=== PATIENT | female | born 1995 | race Caucasian/White ===

== ENCOUNTER 2021-06-20 05:30 | Emergency (ER) | payer BC ==
[2021-06-20] MEDS ORDERED: ACETAMINOPHEN TAB 500 MG TAB PO STA (06:23)
[2021-06-20] MEDS ORDERED: diphenhydrAMINE 50 MG CAP PO STA (06:23)
[2021-06-20 06:31] LABS: Amorphous Sediment,Urine Rare /hpf; Appearance,Urine Cloudy (Clear); Bacteria,Urine Many /hpf; Bilirubin,Urine Negative (Negative); Blood,Urine Negative (Negative); Calcium Oxalate Crystals,Urine Rare /hpf; Color,Urine Yellow; Glucose,Urine (UA) Negative (Negative); Hyaline Casts,Urine 4 /lpf (0-2); Ketones,Urine Negative (Negative); Leukocyte Esterase,Urine Large (Negative); Mucus,Urine Rare /hpf; Nitrite,Urine Negative (Negative); PH, Urine 5.5 (5.0-8.0); Protein,Urine Negative (Negative); RBC,Urine 3 /hpf (0-5); Specific Gravity,Urine 1.022 (1.001-1.035); Squamous Epithelial Cell,Urine 24 /hpf (0-4); Urobilinogen,Urine <2.0 mg/dL (<2.0); WBC,Urine 49 /hpf (0-5)
--- NOTE | 2021-06-20 06:35 | ED ---
Female Urogenital HPI - General Source: patient, RN notes reviewed, old records reviewed Mode of arrival: ambulatory Limitations: no limitations - History of Present Illness MD Complaint: pelvic pain -: hour(s) Location: suprapubic Severity: mild Severity scale (1-10): 2 Quality: cramping Consistency: intermittent Improves with: none Worsens with: none Patient : Yes Associated Symptoms: denies other symptoms <Aayush Tomlinson - Last Filed: 06/20/21 06:33> <Ewa Argueta - Last Filed: 06/20/21 07:51> - General Chief complaint: Abdominal Pain Stated complaint: ABD Pain, 16 wks preg Time Seen by Provider: 06/20/21 05:38 - History of Present Illness Initial comments: This is a 26-year-old female presenting from work today for evaluation of some abdominal pain and cramping. No bleeding. Patient is about 16 weeks she have ultrasound at about [address] with [address] Murrell. Patient states crapping started today she is unsure she did take Tylenol and was little bit worse at work, she presents after hitting her work shift for evaluation of abdominal pain and . She has no nausea vomiting diarrhea, no fevers. (Aayush Tomlinson) - Related Data Home Medications Medication Instructions Recorded Confirmed Folic Acid 1 mg PO DAILY 05/06/14 06/20/21 Mys-Dcyp-Qddya Acid 1 cap PO DAILY 06/20/21 06/20/21 [-U Capsule (formulary)] lamoTRIgine [LaMICtal] 200 mg PO BID 06/20/21 06/20/21 Previous Rx's Medication Instructions Recorded Cephalexin [Keflex] 500 mg PO Q6HR 7 Days #28 cap 06/20/21 Allergies Allergy/AdvReac Type Severity Reaction Status Date / Time No Known Allergies Allergy Verified 06/20/21 07:28 Review of Systems ROS Other: All systems not noted in ROS Statement are negative. <Aayush Tomlinson - Last Filed: 06/20/21 06:33> ROS Other: All systems not noted in ROS Statement are negative. <Ewa Argueta - Last Filed: 06/20/21 07:51> ROS Statement: Those systems with pertinent positive or pertinent negative responses have been documented in the HPI. Past Medical History Past Medical History: Seizure Disorder Additional Past Medical History / Comment(s): adhd mentally challenged History of Any Multi-Drug Resistant Organisms: None Reported Past Surgical History: No Surgical Hx Reported Past Psychological History: ADD/ADHD, Anxiety, Depression Smoking Status: Never smoker Past Alcohol Use History: None Reported Past Drug Use History: Marijuana <Aayush Tomlinson - Last Filed: 06/20/21 06:33> General Exam Limitations: no limitations General appearance: alert, in no apparent distress Head exam: Present: atraumatic, normocephalic, normal inspection Eye exam: Present: normal appearance, PERRL, EOMI. Absent: scleral icterus, conjunctival injection, periorbital swelling ENT exam: Present: normal exam, mucous membranes moist Neck exam: Present: normal inspection. Absent: tenderness, meningismus, lymphadenopathy Respiratory exam: Present: normal lung sounds bilaterally. Absent: respiratory distress, wheezes, rales, rhonchi, stridor Cardiovascular Exam: Present: regular rate, normal rhythm, normal heart sounds. Absent: systolic murmur, diastolic murmur, rubs, gallop, clicks GI/Abdominal exam: Present: soft, normal bowel sounds. Absent: distended, tenderness, guarding, rebound, rigid Extremities exam: Present: normal inspection, full ROM, normal capillary refill. Absent: tenderness, pedal edema, joint swelling, calf tenderness Back exam: Present: normal inspection Neurological exam: Present: alert, oriented X3, CN II-XII intact Psychiatric exam: Present: normal affect, normal mood Skin exam: Present: warm, dry, intact, normal color. Absent: rash <Aayush Tomlinson - Last Filed: 06/20/21 06:33> Course <Aayush Tomlinson - Last Filed: 06/20/21 06:33> Vital Signs 06/20/21 06/20/21 05:33 06:35 Temperature 98.2 F 97.6 F Pulse Rate 77 83 Respiratory 24 16 Rate Blood Pressure 111/71 121/77 O2 Sat by Pulse 100 100 Oximetry - Reevaluation(s) Reevaluation #1: 06/20/21 06:34 Medical record is reviewed (Aayush Tomlinson) Reevaluation #2: 06/20/21 06:34 Patient will receive ultrasound this morning (Aayush Tomlinson) Medical Decision Making <Ewa Argueta - Last Filed: 06/20/21 07:51> - Medical Decision Making Patient is a 26-year-old female presenting for abdominal cramping started today. She is approximately 16 weeks , [facility] [employer] [employer]ILI[facility] is Dr. Michael. No vaginal bleeding. Urine is suggestive of UTI, urine culture is pending. Ultrasound shows a viable IUP at approximately 16 weeks, no alarming findings. I discussed these findings with the patient. Patient be started on Keflex for her UTI. She does have a follow-up appointment with her [facility] A[facility]ILI[facility] next week. Return parameters were discussed with her and she verbalized understanding. Case discussed with Dr. Tomlinson. (Ewa Argueta) - Lab Data Lab Results 06/20/21 Range/Units 06:14 Urine Color Yellow Urine Appearance Cloudy H (Clear) Urine pH 5.5 (5.0-8.0) Ur Specific [place] 1.022 (1.001-1.035) Urine Protein Negative (Negative) Urine Glucose (UA) Negative (Negative) Urine Ketones Negative (Negative) Urine Blood Negative (Negative) Urine Nitrite Negative (Negative) Urine Bilirubin Negative (Negative) Urine Urobilinogen <2.0 (<2.0) mg/dL Ur Leukocyte Esterase Large H (Negative) Urine RBC 3 (0-5) /hpf Urine WBC 49 H (0-5) /hpf Ur Squamous Epith Cells 24 H (0-4) /hpf Calcium Oxalate Crystal Rare H (None) /hpf Amorphous Sediment Rare H (None) /hpf Urine Bacteria Many H (None) /hpf Hyaline Casts 4 H (0-2) /lpf Urine Mucus Rare H (None) /hpf Disposition <Aayush Tomlinson - Last Filed: 06/20/21 06:33> Is patient prescribed a controlled substance at d/c from ED?: No Time of Disposition: 07:50 <Ewa Argueta - Last Filed: 06/20/21 07:51> Clinical Impression: UTI (urinary tract infection) during , Abdominal cramping Disposition: HOME SELF-CARE Condition: Stable Instructions (If sedation given, give patient instructions): Urinary Tract Infection in (ED) Additional Instructions: Please return to the Emergency Department if symptoms worsen or any other concerns. Please take antibiotics as prescribed, finish entire course. Follow-up with your [facility]. Prescriptions: Cephalexin [Keflex] 500 mg PO Q6HR 7 Days #28 cap Referrals: Aaron Talbot MD [Primary Care Provider] - 1-2 days Chrissy Michael MD [STAFF PHYSICIAN] - 1-2 days
--- NOTE | 2021-06-20 07:42 | US ---
EXAMINATION TYPE: US OB >= 14 wk fetus DATE OF EXAM: 06/20/2021 COMPARISON: None CLINICAL HISTORY: ob Pt states lateral ABD pain TECHNIQUE: Transabdominal (TA) GESTATIONAL AGE / DATING Physician Established: (16 weeks/2 days) EDC: 12/03/2021 Dates by LMP: (16 weeks/2 days) EDC: 12/03/2021 Dates by First Scan: No previous this is first scan Dates by Current Scan: (16 weeks/3 days) EDC: 12/02/2021 SURVEY IUP: Single PLACENTA: Anterior PREVIA: No Previa SCHUYLER: 13.3 cm Normal CERVICAL LENGTH (transabdominal: norm > 3.0cm): 4.0 cm BIOMETRY PRESENTATION: Vertex BPD: 3.4 cm 16 weeks / 5 days HC: 12.9 cm 16 weeks / 4 days AC: 9.9 cm 16 weeks / 0 days FL: 2.1 cm 16 weeks / 2 days ESTIMATED WEIGHT IN GRAMS: 146 grams ESTIMATED WEIGHT IN LBS/OZ: 0 lbs. 5 oz. WEIGHT PERCENTAGE BASED ON ESTABLISHED DATES: 32% HC/AC: 1.30 Normal FL/AC: 21 Normal HEART RATE: 155 bpm RHYTHM: Normal Single, viable IUP/ No abnormality visualized at this time to account for pt's symptoms This is not an anatomic survey IMPRESSION: Single live intrauterine measuring approximately 16 weeks and 3 days gestation by sonograph ic criteria.
[2021-06-20 08:11] VITALS: BP 125/70; PULSE 87; RESP 18; TEMP 97.2
== END 2021-06-20 08:11 | disposition home or self-care (01) ==
LOC: EC 05:30
DX: O23.42 Unspecified infection of urinary tract in pregnancy, second trimester (principal); O99.352 Diseases of the nervous system complicating pregnancy, second trimester; G40.909 Epilepsy, unspecified, not intractable, without status epilepticus; O99.342 Other mental disorders complicating pregnancy, second trimester; F41.9 Anxiety disorder, unspecified; F32.9 Major depressive disorder, single episode, unspecified; F90.9 Attention-deficit hyperactivity disorder, unspecified type; O99.322 Drug use complicating pregnancy, second trimester; F12.90 Cannabis use, unspecified, uncomplicated; Z3A.16 16 weeks gestation of pregnancy; Z79.899 Other long term (current) drug therapy
CPT/HCPCS: 76805; 81001; 87086; 99284

== ENCOUNTER 2021-07-14 14:00 | Outpatient (CLI) | payer BC ==
[2021-07-14 14:32] VITALS: BP 125/68; PULSE 74; RESP 16; TEMP 97.3
--- NOTE | 2021-07-31 09:35 | P.MSEPDOC ---
Presenting Problems - Arrival Data Date of Arrival on Unit: 07/14/21 Time of Arrival on Unit: 13:58 Mode of Transport: Ambulatory - Complaint OB-Reason for Admission/Chief Complaint: Decreased Movement Comment: pt GA 19 5/7, doppler fhr 148bpm Medical History - Information : 1 Para: 0 Number of Living Children: 0 - Gestational Age Gestational Age by CARIE (wks/days): 19 Weeks and 5 Days Review of Systems - Review of Systems Constitutional: No problems Breast: No problems ENT: No problems Cardiovascular: No problems Respiratory: No problems Gastrointestinal: No problems Genitourinary: No problems Musculoskeletal: No problems Neurological: No problems Skin: No problems Vital Signs - Temperature Temperature: 97.3 F Temperature Source: Temporal Artery Scan - Pulse Right Sitting Brachial Pulse Rate: 74 Pulse Assessment Method: Automatic Cuff - Respirations Respiratory Rate: 16 Oxygen Delivery Method: Room Air O2 Sat by Pulse Oximetry: 98 - Blood Pressure Right Arm Sitting Blood Pressure: 125/68 Blood Pressure Mean: 87 Blood Pressure Source: Automatic Cuff Physician Notification - Physician Notified Physician Notified Date: 07/14/21 Physician Notified Time: 14:18 Physician: Wyatt Zhong Order Received: Yes (discharge home) Maternal Triage Index - Maternal Triage Index Presenting for scheduled procedure w/no complaint: No - Stat/Priority 1 Stat Priority 1: No - Urgent/Priority 2 Urgent Priority 2: No - Prompt/Priority 3 Prompt Priority 3: No - Non-Urgent/Priority 4 Non-Urgent Priority 4: Yes Criteria Met for Priority 4: decrease movement, non viable gestation Disposition - Disposition OB Disposition: Discharge to home Discharge Date: 07/14/21 Discharge Time: 14:23 I agree with the RN Medical Screening Exam: Yes Case reviewed; plan agreed upon as documented in EMR&OBIX.: Yes Comments: This patient was discussed with Dr. hZong, my partner. This patient was neither seen nor examined by either one of us. Diagnosis: DECREASED MOVEMENTS, SECOND TRIMESTER, FETUS 1
== END 2021-07-14 14:23 | disposition home or self-care (01) ==
LOC: FBPOP 14:00
PROVIDERS: ATTEND Obstetrics & Gynecology
DX: O36.8121 Decreased fetal movements, second trimester, fetus 1 (principal); Z3A.19 19 weeks gestation of pregnancy
CPT/HCPCS: 99213

== ENCOUNTER 2021-08-29 11:40 | Outpatient (CLI) | payer BC ==
[2021-08-29 12:52] LABS: Appearance,Urine Cloudy (Clear); Bacteria,Urine Rare /hpf; Bilirubin,Urine Negative (Negative); Blood,Urine Negative (Negative); Color,Urine Yellow; Glucose,Urine (UA) Negative (Negative); Ketones,Urine Negative (Negative); Leukocyte Esterase,Urine Large (Negative); Mucus,Urine Rare /hpf; Nitrite,Urine Negative (Negative); PH, Urine 6.5 (5.0-8.0); Protein,Urine Trace (Negative); RBC,Urine 48 /hpf (0-5); Specific Gravity,Urine 1.021 (1.001-1.035); Squamous Epithelial Cell,Urine 9 /hpf (0-4); Urobilinogen,Urine <2.0 mg/dL (<2.0); WBC,Urine 58 /hpf (0-5)
[2021-08-29 13:51] VITALS: BP 113/66; PULSE 81; RESP 17; TEMP 97.4
--- NOTE | 2021-09-13 07:43 | P.MSEPDOC ---
Presenting Problems - Arrival Data Date of Arrival on Unit: 08/29/21 Time of Arrival on Unit: 11:40 Mode of Transport: Wheelchair - Complaint OB-Reason for Admission/Chief Complaint: Pain Comment: pt presents to triage for 1 episode of vomiting and dizziness at 0830 and constant back pain and some cramping Medical History - Information : 1 Para: 0 Term: 0 : 0 Abortions: Spontaneous or Elective: 0 Number of Living Children: 0 - Gestational Age Gestational Age by CARIE (wks/days): 26 Weeks and 2 Days - History Complications: Other Comment: pt smokes marijuana daily Review of Systems - Review of Systems Constitutional: No problems Breast: No problems ENT: No problems Cardiovascular: No problems Respiratory: No problems Gastrointestinal: No problems Genitourinary: No problems Musculoskeletal: No problems Neurological: No problems Skin: No problems Vital Signs - Temperature Temperature: 97.4 F Temperature Source: Temporal Artery Scan - Pulse Right Brachial Pulse Rate: 81 Pulse Assessment Method: Automatic Cuff - Respirations Respiratory Rate: 17 O2 Sat by Pulse Oximetry: 99 - Blood Pressure Right Arm Blood Pressure: 113/66 Blood Pressure Mean: 81 Blood Pressure Source: Automatic Cuff Medical Screen Scoring - Cervical Exam Dilation (cm): 0 Station: -5 Membranes: Intact - Uterine Contractions Frequency From (mins): 0 - Assessment - Baby A Heart Rate - NICHD Category: Category I (Normal) Physician Notification - Physician Notified Physician Notified Date: 08/29/21 Physician Notified Time: 13:10 Physician: Chrissy Michael Order Received: Yes - Notification Comment Comment: ua results reported, urine culture ordered, pt to increase oral fluids, on pelvic rest until next scheduled appt on sep 14, script for keflex called into [facility] for patient Maternal Triage Index - Maternal Triage Index Presenting for scheduled procedure w/no complaint: No - Stat/Priority 1 Stat Priority 1: No - Urgent/Priority 2 Urgent Priority 2: No - Prompt/Priority 3 Prompt Priority 3: No - Non-Urgent/Priority 4 Non-Urgent Priority 4: Yes Criteria Met for Priority 4: pt 26/27 weeks GA, presents with constant lower back pain and some cramping and one epidisode of n/v this am Disposition - Disposition OB Disposition: Triage, Discharge to home, Written follow up instructions reviewed Discharge Date: 08/29/21 Discharge Time: 13:30 I agree with the RN Medical Screening Exam: Yes Case reviewed; plan agreed upon as documented in EMR&OBIX.: Yes Comments: Patient was neither seen nor examined by me Diagnosis: TULAREMIA NOS
== END 2021-08-29 13:30 | disposition home or self-care (01) ==
LOC: FBPOP 11:40
PROVIDERS: ATTEND Obstetrics & Gynecology
DX: O98.812 Other maternal infectious and parasitic diseases complicating pregnancy, second trimester (principal); O99.322 Drug use complicating pregnancy, second trimester; A21.9 Tularemia, unspecified; F12.90 Cannabis use, unspecified, uncomplicated; Z3A.26 26 weeks gestation of pregnancy
CPT/HCPCS: 81001; 87086; 99213

== ENCOUNTER 2021-09-15 13:15 | Outpatient (CLI) | payer BC ==
[2021-09-15 15:14] LABS: Appearance,Urine Cloudy (Clear); Bacteria,Urine Rare /hpf; Bilirubin,Urine Negative (Negative); Blood,Urine Negative (Negative); Calcium Oxalate Crystals,Urine Occasional /hpf; Color,Urine Yellow; Glucose,Urine (UA) Negative (Negative); Ketones,Urine 1+ (Negative); Leukocyte Esterase,Urine Large (Negative); Mucus,Urine Rare /hpf; Nitrite,Urine Negative (Negative); PH, Urine 6.5 (5.0-8.0); Protein,Urine Trace (Negative); RBC,Urine 12 /hpf (0-5); Specific Gravity,Urine 1.023 (1.001-1.035); Squamous Epithelial Cell,Urine 1 /hpf (0-4); Urobilinogen,Urine <2.0 mg/dL (<2.0); WBC,Urine 46 /hpf (0-5)
[2021-09-15 16:32] VITALS: BP 118/65; PULSE 84; RESP 18; TEMP 97.4
--- NOTE | 2021-09-16 11:34 | P.MSEPDOC ---
Presenting Problems - Arrival Data Date of Arrival on Unit: 09/15/21 Time of Arrival on Unit: 13:16 Mode of Transport: Ambulatory - Complaint OB-Reason for Admission/Chief Complaint: Other Comment: abd pain,back and vaginal regions that began this am.spotting pink a few hours ago Medical History - Information : 1 Para: 0 Term: 0 : 0 Abortions: Spontaneous or Elective: 0 Number of Living Children: 0 - Gestational Age Gestational Age by CARIE (wks/days): 28 Weeks and 5 Days Review of Systems - Review of Systems Constitutional: No problems Breast: No problems ENT: No problems Cardiovascular: No problems Respiratory: No problems Gastrointestinal: No problems Genitourinary: No problems Musculoskeletal: No problems Neurological: No problems Skin: No problems Vital Signs - Temperature Temperature: 97.4 F Temperature Source: Temporal Artery Scan - Pulse Right Radial Pulse Rate: 84 Pulse Assessment Method: Automatic Cuff - Respirations Respiratory Rate: 18 Oxygen Delivery Method: Room Air - Blood Pressure Right Arm Blood Pressure: 118/65 Blood Pressure Mean: 82 Blood Pressure Source: Automatic Cuff Medical Screen Scoring - Assessment - Baby A Baseline FHR: 140 Heart Rate - NICHD Category: Category I (Normal) NST: Reactive Physician Notification - Physician Notified Physician Notified Date: 09/15/21 Physician Notified Time: 16:00 Physician: Wyatt Zhong Order Received: Yes - Notification Comment Comment: bactrim bid x 5 days. home with instructions. lots of water. call office on saturday for culture results Maternal Triage Index - Non-Urgent/Priority 4 Non-Urgent Priority 4: Yes Criteria Met for Priority 4: abnormal urine.rx meds given for uti. ffn= neg. cervical exam closed thick high. Disposition - Disposition OB Disposition: Discharge to home, Written follow up instructions reviewed Discharge Date: 09/15/21 Discharge Time: 16:05 I agree with the RN Medical Screening Exam: Yes Physician's MSE Comment: I have neither seen nor examined the patient. Case reviewed; plan agreed upon as documented in EMR&OBIX.: Yes Diagnosis: RELATED CONDITIONS, UNSPECIFIED, THIRD TRIMESTER
== END 2021-09-15 16:05 | disposition home or self-care (01) ==
LOC: FBPOP 13:15
PROVIDERS: ATTEND Obstetrics & Gynecology
DX: O26.893 Other specified pregnancy related conditions, third trimester (principal); R10.9 Unspecified abdominal pain; M54.9 Dorsalgia, unspecified; Z3A.28 28 weeks gestation of pregnancy
CPT/HCPCS: 59025; 81001; 82731; 87086; 99213

== ENCOUNTER 2021-09-18 14:30 | Outpatient (CLI) | payer BC ==
[2021-09-18 15:59] VITALS: BP 134/85; PULSE 89; RESP 16; TEMP 97.2
--- NOTE | 2021-10-25 04:50 | P.MSEPDOC ---
Presenting Problems - Arrival Data Date of Arrival on Unit: 09/18/21 Time of Arrival on Unit: 14:30 Mode of Transport: Ambulatory - Complaint OB-Reason for Admission/Chief Complaint: Acute Nausea/Vomiting Comment: Nausea vomiting since last night, complains of vomiting x5 today. Dr. Michael office aware and sent patient to triage. Medical History - Gestational Age Gestational Age by CARIE (wks/days): 29 Weeks and 1 Days Review of Systems - Review of Systems Constitutional: No problems Breast: No problems ENT: No problems Cardiovascular: No problems Respiratory: No problems Gastrointestinal: No problems Genitourinary: No problems Musculoskeletal: No problems Neurological: No problems Skin: No problems Vital Signs - Temperature Temperature: 97.2 F Temperature Source: Oral - Pulse Pulse Oximetery Pulse Rate: 89 Pulse Assessment Method: Pulse Oximetry - Respirations Respiratory Rate: 16 Oxygen Delivery Method: Room Air O2 Sat by Pulse Oximetry: 97 - Blood Pressure Right Arm Blood Pressure: 134/85 Blood Pressure Mean: 101 Blood Pressure Source: Automatic Cuff Medical Screen Scoring - Assessment - Baby A Heart Rate - NICHD Category: Category I (Normal) Physician Notification - Physician Notified Physician Notified Date: 09/18/21 Physician Notified Time: 15:30 Physician: Dr. Michael New Order Received: Yes - Notification Comment Comment: Dr. Michael notified of patients complaints of nausea and vomiting, p atient instructed to hydrate orally and follow up in one week at Dr. Hargrove office. FHR catagory I Dr. Michael aware. Maternal Triage Index - Maternal Triage Index Presenting for scheduled procedure w/no complaint: No - Stat/Priority 1 Stat Priority 1: No - Urgent/Priority 2 Urgent Priority 2: No - Prompt/Priority 3 Prompt Priority 3: No - Non-Urgent/Priority 4 Non-Urgent Priority 4: Yes Criteria Met for Priority 4: Patient complaints of nausea vomiting x5 today. Gestatial age 29weeks and 1 day Disposition - Disposition OB Disposition: Physician follow up in office, Triage, Discharge to home, Written follow up instructions reviewed Discharge Date: 09/18/21 Discharge Time: 15:45 I agree with the RN Medical Screening Exam: Yes Case reviewed; plan agreed upon as documented in EMR&OBIX.: Yes Comments: Patient with me this pain not examined by me Diagnosis: PULMONARY TULAREMIA
== END 2021-09-18 15:45 | disposition home or self-care (01) ==
LOC: FBPOP 14:30
PROVIDERS: ATTEND Obstetrics & Gynecology
DX: O98.813 Other maternal infectious and parasitic diseases complicating pregnancy, third trimester (principal); A21 Tularemia; Z3A.29 29 weeks gestation of pregnancy
CPT/HCPCS: 59025; 84112; 99213

== ENCOUNTER 2021-09-19 13:05 | Outpatient (CLI) | payer BC ==
[2021-09-19 14:55] VITALS: BP 128/75; PULSE 98; RESP 16; TEMP 97.6
--- NOTE | 2021-10-25 04:49 | P.MSEPDOC ---
Presenting Problems - Arrival Data Date of Arrival on Unit: 09/19/21 Time of Arrival on Unit: 13:05 Mode of Transport: Ambulatory - Complaint OB-Reason for Admission/Chief Complaint: Other Comment: Patient arrived at triage with cramping, vaginal discharge and mild vaginal pain. Dr. Michael spoke with patient on the phone and had patient come to triage. Medical History - Information : 1 Para: 0 Term: 0 : 0 Abortions: Spontaneous or Elective: 0 Number of Living Children: 0 - Gestational Age Gestational Age by CARIE (wks/days): 29 Weeks and 2 Days Review of Systems - Review of Systems Constitutional: No problems Breast: No problems ENT: No problems Cardiovascular: No problems Respiratory: No problems Gastrointestinal: No problems Genitourinary: No problems Musculoskeletal: No problems Neurological: No problems Skin: No problems Vital Signs - Temperature Temperature: 97.6 F Temperature Source: Oral - Pulse Pulse Oximetery Pulse Rate: 98 Pulse Assessment Method: Pulse Oximetry - Respirations Respiratory Rate: 16 O2 Sat by Pulse Oximetry: 98 - Blood Pressure Right Arm Blood Pressure: 128/75 Blood Pressure Mean: 92 Blood Pressure Source: Automatic Cuff Medical Screen Scoring - Cervical Exam Dilation (cm): 0 Effacement (%): 0 Membranes: Intact - Uterine Contractions Frequency From (mins): 0 - Assessment - Baby A Baseline FHR: 135 Heart Rate - NICHD Category: Category I (Normal) NST: Reactive Physician Notification - Physician Notified Physician Notified Date: 09/19/21 Physician Notified Time: 14:00 Physician: Dr. Michael New Order Received: Yes (Patient to follow up in office this week.) Maternal Triage Index - Non-Urgent/Priority 4 Non-Urgent Priority 4: Yes Criteria Met for Priority 4: Patient arrived to triage with cramping, vaginal discharge with mild pain that is white and yellow. Disposition - Disposition OB Disposition: Discharge to home Discharge Date: 09/19/21 Discharge Time: 14:30 I agree with the RN Medical Screening Exam: Yes Case reviewed; plan agreed upon as documented in EMR&OBIX.: Yes Comments: Patient was neither see nor examined by me Diagnosis: 047.03
== END 2021-09-19 14:30 | disposition home or self-care (01) ==
LOC: FBPOP 13:05
PROVIDERS: ATTEND Obstetrics & Gynecology
DX: O47.03 False labor before 37 completed weeks of gestation, third trimester (principal); Z3A.29 29 weeks gestation of pregnancy
CPT/HCPCS: 59025; 99213

== ENCOUNTER 2021-10-31 16:38 | Inpatient (IN) | payer BC ==
[2021-10-31] MEDS ORDERED: LIDOCAINE 0.5% (PF) 5 MG/ML (50 ML SDV) SQ PRN (18:22)
[2021-10-31] MEDS ORDERED: METHYLERGONOVINE 0.2 MG/ML 1 ML AMP IM PRN (18:22)
[2021-10-31] MEDS ORDERED: OXYTOCIN 10 UNIT/ML 1 ML VIAL IM PRN (18:22)
[2021-10-31] MEDS ORDERED: CARBOPROST TROMETHAMINE 250 MCG/ML 1 ML AMP IM PRN (18:22)
[2021-10-31] MEDS ORDERED: TERBUTALINE 1 MG/ML VIAL SQ PRN (18:22)
[2021-10-31] MEDS ORDERED: AMPICILLIN 2,000 MG in SODIUM CHLORIDE 0.9% 100 ML IVPB STA (18:25)
[2021-10-31] MEDS ORDERED: OXYTOCIN 30 UNITS/500 ML NS 30 UNIT in SALINE 1 500ML.BAG IV SCH (18:30)
[2021-10-31 18:59] LABS: Basophils % (A) 0 %; Eosinophils # (A) 0.1 k/uL (0-0.7); Eosinophils % (A) 1 %; HCT 33.4 % (34.0-46.0); HGB 11.8 gm/dL (11.4-16.0); Lymphocytes % (A) 21 %; MCH 31.4 pg (25.0-35.0); MCHC 35.3 g/dL (31.0-37.0); MCV 89.1 fL (80.0-100.0); Mean Platelet Volume 7.5; Monocytes # (A) 0.4 k/uL (0-1.0); Monocytes % (A) 5 %; Neutrophils # (A) 6.5 k/uL (1.3-7.7); Neutrophils % (A) 71 %; Platelet Count 281 k/uL (150-450); RBC 3.75 m/uL (3.80-5.40); RDW 12.2 % (11.5-15.5); WBC 9.1 k/uL (3.8-10.6)
[2021-10-31] MEDS: LACTATED RINGERS 1,000 ML IV SCH (19:00)
[2021-10-31] MEDS: lamoTRIgine 100 MG TAB PO SCH (20:06)
[2021-10-31] MEDS: AMPICILLIN 1,000 MG in SODIUM CHLORIDE 0.9% 50 ML IVPB SCH (23:19)
[2021-11-01] MEDS: LACTATED RINGERS 1,000 ML IV SCH ×2 (02:46→13:32)
[2021-11-01] MEDS: AMPICILLIN 1,000 MG in SODIUM CHLORIDE 0.9% 50 ML IVPB SCH ×4 (02:55→15:31)
[2021-11-01] MEDS: BUTORPHANOL 1 MG/ML 1 ML VIAL IV PRN ×2 (04:53→07:52)
[2021-11-01] MEDS: lamoTRIgine 100 MG TAB PO SCH ×2 (09:49→20:07)
[2021-11-01] MEDS ORDERED: ROPIVACAINE 5MG/ML 20ML VIAL ONE (09:51)
[2021-11-01] MEDS ORDERED: SODIUM CHLORIDE 0.9% 100 ML BAG ONE (09:51)
[2021-11-01] MEDS ORDERED: fentaNYL (PF) 50 MCG/ML 5 ML AMP ONE (09:51)
[2021-11-01] MEDS ORDERED: ROPIVACAINE 100 MG, fentaNYL (PF). 200 MCG in SODIUM CHLORIDE 0.9% 76 ML EPIDURAL ONE (11:00)
--- NOTE | 2021-11-01 14:30 | P.HPOB ---
History of Present Illness H&P Date: 11/01/21 Chief Complaint: My water broke at 6:30 AM on Saturday morning This is a 26-year-old female 1 para 0 EDC 1-22 at 35-3/7 weeks' gestation who presented with spontaneous amniorrhexis at home. She presented to labor and delivery last night at approximate 6:30 PM. She was admitted, spontaneous amniorrhexis was confirmed by amnio sure testing. Clear fluid continued to leak. Ampicillin was started for known history of positive group B strep. Past medical history is significant for seizures, stable on Lamictal twice daily. Surgical history is negative. Social history patient is single, she admits to leaking and marijuana use. She lives locally in [place]. She is currently employed. Obstetric history blood type is A+, rubella status immune. VDRL testing, urine culture, hepatitis B surface antigen, HIV testing, gonorrhea and chlamydia cultures all negative. Urine drug screen positive 2 for cannabinoids. One- hour Glucola 123, positive group B strep noted in the urine for culture. Current medications Lamictal 200mg twice daily, vitamin daily. ALLERGIES none known. On exam patient is 5 foot 0 inches, 154 pounds, initial blood pressure on admission 147/92 with a pulse of 98. General physical exam is within normal limits. heart rate is consistent with reactive NST. Cervix is 1 cm dilated, long, -3, vertex, posterior with clear fluid leaking. Extremities reveal no edema. Impression: 35-3/7 weeks intrauterine , premature rupture of membranes. Positive group B strep culture noted. Positive history of marijuana here Plan: Ampicillin prophylaxis was started by the doctor rehabilitation clerk. Low-dose Pitocin through the night. Close maternal and surveillance. Anticipate normal spontaneous vaginal delivery. Review of Systems Constitutional: Reports as per HPI Past Medical History Past Medical History: Seizure Disorder Additional Past Medical History / Comment(s): Seizures since 6 years of age, last seizure in 2019. ADHD History of Any Multi-Drug Resistant Organisms: None Reported Past Surgical History: No Surgical Hx Reported Past Anesthesia/Blood Transfusion Reactions: No Reported Reaction Past Psychological History: ADD/ADHD, Anxiety, Depression Smoking Status: Former smoker Past Alcohol Use History: None Reported Past Drug Use History: Marijuana Additional Drug Use History / Comment(s): Quit smoking in March - Past Family History Mother Family Medical History: No Reported History Medications and Allergies Home Medications Medication Instructions Recorded Confirmed Type Folic Acid 1 mg PO DAILY 05/06/14 10/31/21 History Yrx-Mtzn-Unmnp Acid 1 cap PO DAILY 06/20/21 10/31/21 History [-U Capsule (formulary)] lamoTRIgine [LaMICtal] 200 mg PO BID 06/20/21 10/31/21 History Allergies Allergy/AdvReac Type Severity Reaction Status Date / Time No Known Allergies Allergy Verified 10/31/21 16:57 Exam Vital Signs Temp Pulse Resp BP Pulse Ox 10/31/21 18:22 97.8 F 98 17 147/92 100 10/31/21 17:40 97.5 F L 107 H 17 134/95 100 Intake and Output 10/31/21 11/01/21 11/01/21 22:59 06:59 14:59 Other: # Voids 2 2 Weight 69.853 kg See dictation under HPI please Results Result Diagrams: 10/31/21 18:42 Abnormal Lab Results - Last 24 Hours (Table) 10/31/21 Range/Units 18:42 RBC 3.75 L (3.80-5.40) m/uL Hct 33.4 L (34.0-46.0) % Assessment and Plan Assessment: 35-3/7 weeks intrauterine , premature rupture of membranes, positive group B strep culture history noted. Positive seizure history, stable since 2019. Plan: Ampicillin prophylaxis per hospital protocol. Low-dose Pitocin through the night. Continue close maternal and surveillance. director of environmental services consult. Anticipate ultimately normal spontaneous vaginal delivery Time with Patient: Less than 30
[2021-11-01] MEDS ORDERED: diphenhydrAMINE 50 MG/ML 1 ML VIAL IVP PRN ×2 (14:33)
[2021-11-01] MEDS ORDERED: diphenhydrAMINE 50 MG CAP PO PRN (14:33)
[2021-11-01] MEDS ORDERED: BENZOCAINE/MENTHOL SPRAY 1 GM/SPRAY AEROSOL TOPICAL PRN (14:33)
[2021-11-01] MEDS ORDERED: HYDROCORTISONE 2.5% RECTAL CREAM 30 GM TUBE RECTAL PRN (14:33)
[2021-11-01] MEDS ORDERED: diphenhydrAMINE 25 MG CAP PO PRN (14:33)
[2021-11-01] MEDS ORDERED: ZOLPIDEM 5 MG TAB PO PRN (14:33)
[2021-11-01] MEDS ORDERED: diphenhydrAMINE ELIXIR 25 MG/10 ML CUP PO PRN (14:33)
[2021-11-01] MEDS ORDERED: SIMETHICONE 80 MG CHEWABLE PO PRN (14:33)
[2021-11-01] MEDS ORDERED: LANOLIN CREAM 5 GM TUBE TOPICAL PRN (14:33)
[2021-11-01] MEDS ORDERED: ACETAMINOPHEN TAB 325 MG TAB PO PRN (14:33)
--- NOTE | 2021-11-01 14:33 | P.PROBDLV ---
Vaginal Delivery Note - . Vaginal Delivery Note: This is a 26-year-old female 1 para 0 EDC 1-22 at 35-3/7 weeks' gestation who presented last night with spontaneous amniorrhexis which occurred at 6:30 in the morning, clear fluid. This is confirmed in the triage area by positive amnio sure testing. She has a known history of positive group B strep cultures in the urine. She also has a seizure history, stable on Lamictal and followed by a neurologist. Please see dictated history and physical for details. Ampicillin prophylaxis was started. Low-dose Pitocin was run through the night. This morning patient was noted to be 3 cm dilated, 70% effaced, -2 station. Artificial amniorrhexis of a large 4 bag revealed clear fluid. Oxytocin was titrated per hospital protocol. Epidural was placed per the patient's request. Toward the end of the first stage of labor late decelerations were noted. For this reason, Pitocin was discontinued, oxygen was given per facemask. Internal scalp lead was applied, fluid bolus was given, and patient was repositioned way over on the side. With these maneuvers, the late decelerations ceased. Patient progressed through labor and was judged to be completely dilated at 1355 hours with a 0 to +1 station. Perineal body was prepped and draped in usual sterile fashion. With excellent maternal expulsive efforts the infant's head delivered occiput anterior and he restituted accordingly. There was no nuchal cord noted. The left or anterior shoulder was delivered easily from underneath the pubic symphysis at which time the oropharynx, nasopharynx, and external nares were all bulb suctioned on the perineal body. Patient was officially delivered of a liveborn male infant at 12/05/2007 hours. Umbilical cord was doubly clamped and ligated, he was handed to waiting nurses for evaluation where scores of 8 and 9 at one and 5 minutes respectively were given. weighed 5 lbs. 2 oz. or 2310 g. Placenta was delivered spontaneously, it was inspected and noted to be intact with trivascular cord at 1410 hrs. Uterus is then massaged. Bleeding was appropriate. Careful inspection of the cervix, vagina, perineum, periurethral, and perirectal areas revealed a very superficial first-degree laceration in the inner portion of the right labial minora. This was not bleeding, and no suture material was deemed necessary. All sponge needle and enhancement counts are correct at the end of the procedure. Patient is requesting circumcision for her son.
[2021-11-01 15:09] VITALS: RESP 18
[2021-11-01] MEDS: IBUPROFEN 600 MG TAB PO SCH (15:32)
[2021-11-01] MEDS: SENNOSIDES-DOCUSATE SODIUM 1 EACH TAB PO SCH (19:52)
[2021-11-02] MEDS: IBUPROFEN 600 MG TAB PO SCH ×2 (04:00)
[2021-11-02 07:42] VITALS: BP 130/88; PULSE 81; TEMP 98.1
[2021-11-02] MEDS: SENNOSIDES-DOCUSATE SODIUM 1 EACH TAB PO SCH (07:49)
--- NOTE | 2021-11-02 08:01 | P.DS ---
Providers Date of admission: 10/31/21 17:55 Expected date of discharge: 11/02/21 Attending physician: Chrissy Michael Primary care physician: Stated None Hospital Course: This is a 26-year-old female 1 para 0 EDC 1-22 at 35-3/7 weeks who presented with spontaneous amniorrhexis which occurred at home, clear fluid. She was admitted, antibiotics started. The following morning oxytocin was meeting fully increased. She requested and received an epidural. Patient delivered vaginally a liveborn male with scores of 8 and 9 at one and 5 minutes respectively. Infant weighed 5 lbs. 2 oz. or 2310 g. The estimated blood loss recorded of 200 mL, and a small first-degree laceration not requiring suture material. Please see dictated delivery note for details. This morning the patient would like to be discharged home. She is voiding, ambulating, passing flatus without difficulty. Vital signs are stable and she is afebrile. Fundus is firm and in the midline, symmetric and 18 week size. Extremities reveal no edema. infant is in the nursery with gavage feeding, not able to be circumcised this morning. Patient is requesting discharge home this morning and is in very good condition for discharge home. Patient will follow-up with me in the office in 6 weeks. I have reminded her no intercourse, tampons or douching. She will use [id number] ibuprofen, 200 mg pills, 3 every 6 hours as needed. I've asked her to call me with any fevers shakes or chills, foul smelling or copious lochia, with the passage of large blood clots, with any pain not alleviated by [id number] products, or indeed with any concerns. We have briefly discussed contraceptive options and we will discuss this further in the office. I will circumcise the when cleared by [employer] music [employer]. Assessment: Doing well status post vaginal delivery Patient Condition at Discharge: Good Plan - Discharge Summary Discharge Rx Participant: No New Discharge Prescriptions: No Action Folic Acid 1 mg PO DAILY lamoTRIgine [LaMICtal] 200 mg PO BID Esl-Nbas-Kwlhr Acid [-U Capsule (formulary)] 1 cap PO DAILY Discharge Medication List Folic Acid 1 mg PO DAILY 05/06/14 [History] Fmw-Fwvs-Ctdel Acid [-U Capsule (formulary)] 1 cap PO DAILY 06/20/21 [History] lamoTRIgine [LaMICtal] 200 mg PO BID 06/20/21 [History] Follow up Appointment(s)/Referral(s): Chrissy Michael MD [STAFF PHYSICIAN] - 2 Weeks Discharge Disposition: HOME SELF-CARE
[2021-11-02] MEDS: lamoTRIgine 100 MG TAB PO SCH (08:42)
== END 2021-11-02 11:15 | disposition home or self-care (01) | DRG 805 ==
LOC: FBPOP 16:38 → 4FBP 17:55
PROVIDERS: ADMIT Obstetrics & Gynecology Obstetrics; ATTEND Obstetrics & Gynecology
PROC: 10E0XZZ Delivery of Products of Conception, External Approach (ICD-10-PCS; principal; 2021-11-01)
PROC: 0HQ9XZZ Repair Perineum Skin, External Approach (ICD-10-PCS; 2021-11-01)
PROC: 4A0HXCZ Measurement of Products of Conception, Cardiac Rate, External Approach (ICD-10-PCS; 2021-11-01)
PROC: 10907ZC Drainage of Amniotic Fluid, Therapeutic from Products of Conception, Via Natural or Artificial Opening (ICD-10-PCS; 2021-11-01)
PROC: 3E033VJ Introduction of Other Hormone into Peripheral Vein, Percutaneous Approach (ICD-10-PCS; 2021-11-01)
PROC: 0UQMXZZ Repair Vulva, External Approach (ICD-10-PCS; 2021-11-01)
DX: O76 Abnormality in fetal heart rate and rhythm complicating labor and delivery (principal); O60.14X0 Preterm labor third trimester with preterm delivery third trimester, not applicable or unspecified; Z37.0 Single live birth; O99.354 Diseases of the nervous system complicating childbirth; O99.324 Drug use complicating childbirth; O71.89 Other specified obstetric trauma; O70.0 First degree perineal laceration during delivery; O99.824 Streptococcus B carrier state complicating childbirth; O99.344 Other mental disorders complicating childbirth; G40.909 Epilepsy, unspecified, not intractable, without status epilepticus; F41.9 Anxiety disorder, unspecified; F12.90 Cannabis use, unspecified, uncomplicated; F90.9 Attention-deficit hyperactivity disorder, unspecified type; F32.A Depression, unspecified; Z3A.35 35 weeks gestation of pregnancy; Z79.899 Other long term (current) drug therapy; Z87.891 Personal history of nicotine dependence
CPT/HCPCS: 59025; 85025; 86850; 86900; 86901; 99213

== ENCOUNTER 2021-11-17 01:18 | Emergency (ER) | payer BC ==
[2021-11-17 01:30] VITALS: RESP 18
[2021-11-17] MEDS ORDERED: SODIUM CHLORIDE 0.9% 1,000 ML IV STA (01:41)
--- NOTE | 2021-11-17 02:15 | ED ---
Weakness HPI - General Chief complaint: Weakness Stated complaint: Weakness Time Seen by Provider: 11/17/21 01:38 Source: patient, EMS, RN notes reviewed, old records reviewed Mode of arrival: EMS Limitations: physical limitation - History of Present Illness Initial comments: This is a 26-year-old female to the emergency department today. Patient Dese for evaluation of multiple complaints some slurred speech blurry vision which is similar she gets with prior seizures recently started on seizure medication again that she recently had a baby. Also complaining of weakness in the legs that is been an issue in the past but is worsening now to the point where she isn't difficulty with ambulation. No back pain no difficulty with urination 05 hours. No fevers no other recent illnesses or medication changes MD Complaint: generalized weakness, focal weakness, numbness, tingling, difficulty walking -: days(s) Location: LLE, RLE Severity: moderate Severity scale (1-10): 7 Quality: tingling, numbness Consistency: constant Improves with: none Worsens with: none Context: new medication (Recently restarted on seizure medication), history of similar (Similar low not as bad with history of seizures) Associated Symptoms: denies other symptoms - Related Data Home Medications Medication Instructions Recorded Confirmed Folic Acid 1 mg PO DAILY 05/06/14 10/31/21 Yed-Ysqr-Nzfdq Acid 1 cap PO DAILY 06/20/21 10/31/21 [-U Capsule (formulary)] lamoTRIgine [LaMICtal] 200 mg PO BID 06/20/21 10/31/21 Allergies Allergy/AdvReac Type Severity Reaction Status Date / Time No Known Allergies Allergy Verified 11/17/21 01:30 Review of Systems ROS Statement: Those systems with pertinent positive or pertinent negative responses have been documented in the HPI. ROS Other: All systems not noted in ROS Statement are negative. Past Medical History Past Medical History: Seizure Disorder Additional Past Medical History / Comment(s): Seizures since 6 years of age, last seizure in 2019. ADHD History of Any Multi-Drug Resistant Organisms: None Reported Past Surgical History: No Surgical Hx Reported Past Anesthesia/Blood Transfusion Reactions: No Reported Reaction Past Psychological History: ADD/ADHD, Anxiety, Depression Smoking Status: Former smoker Past Alcohol Use History: None Reported Past Drug Use History: Marijuana - Past Family History Mother Family Medical History: No Reported History General Exam - General Exam Comments Initial Comments: Patient is able to move extremities without significant difficulty and has good sensation to both legs seemed to both sides of her leg lift legs off the bed, reflexes are normal Limitations: physical limitation General appearance: alert, in no apparent distress Head exam: Present: atraumatic, normocephalic, normal inspection Eye exam: Present: normal appearance, PERRL, EOMI. Absent: scleral icterus, conjunctival injection, periorbital swelling ENT exam: Present: normal exam, mucous membranes moist Neck exam: Present: normal inspection. Absent: tenderness, meningismus, lymphadenopathy Respiratory exam: Present: normal lung sounds bilaterally. Absent: respiratory distress, wheezes, rales, rhonchi, stridor Cardiovascular Exam: Present: regular rate, normal rhythm, normal heart sounds. Absent: systolic murmur, diastolic murmur, rubs, gallop, clicks GI/Abdominal exam: Present: soft, normal bowel sounds. Absent: distended, tenderness, guarding, rebound, rigid Extremities exam: Present: normal inspection, full ROM, normal capillary refill. Absent: tenderness, pedal edema, joint swelling, calf tenderness Back exam: Present: normal inspection Neurological exam: Present: alert, oriented X3, CN II-XII intact Psychiatric exam: Present: normal affect, normal mood Skin exam: Present: warm, dry, intact, normal color. Absent: rash Course Vital Signs 11/17/21 01:22 Temperature 98.4 F Pulse Rate 74 Respiratory 18 Rate Blood Pressure 134/81 O2 Sat by Pulse 97 Oximetry - Reevaluation(s) Reevaluation #1: 11/17/21 03:40 Record is reviewed Reevaluation #2: 11/17/21 04:45 Patient is able to ambulate here in the ER without any other complaint Reevaluation #3: 11/17/21 04:45 Patient informed results and questions are answered EKG Findings - EKG Comments: EKG Findings:: EKG shows sinus rhythm 76 RI 160 QRS 98 QTc 450 Medical Decision Making - Medical Decision Making 26 female to the emergency department for evaluation of weakness mainly weakness. Patient feels very fatigued feels better with hydration here in the ER. At this time patient symptoms are improved and she can be discharged home - Lab Data Result diagrams: 11/17/21 02:13 11/17/21 02:13 Lab Results 11/17/21 11/17/21 11/17/21 Range/Units 02:13 02:13 02:13 WBC 8.1 (3.8-10.6) k/uL RBC 4.38 (3.80-5.40) m/uL Hgb 13.5 (11.4-16.0) gm/dL Hct 40.6 (34.0-46.0) % MCV 92.8 (80.0-100.0) fL MCH 30.7 (25.0-35.0) pg MCHC 33.1 (31.0-37.0) g/dL RDW 11.4 L (11.5-15.5) % Plt Count 399 (150-450) k/uL MPV 7.0 Neutrophils % 51 % Lymphocytes % 40 % Monocytes % 4 % Eosinophils % 2 % Basophils % 1 % Neutrophils # 4.1 (1.3-7.7) k/uL Lymphocytes # 3.3 (1.0-4.8) k/uL Monocytes # 0.3 (0-1.0) k/uL Eosinophils # 0.1 (0-0.7) k/uL Basophils # 0.1 (0-0.2) k/uL PT 10.1 (9.0-12.0) sec INR 0.9 (<1.2) APTT 27.1 (22.0-30.0) sec Sodium 139 (137-145) mmol/L Potassium 3.9 (3.5-5.1) mmol/L Chloride 105 (98-107) mmol/L Carbon Dioxide 23 (22-30) mmol/L Anion Gap 11 mmol/L BUN 18 H (7-17) mg/dL Creatinine 1.09 H (0.52-1.04) mg/dL Est GFR (CKD-EPI)AfAm 83 (>60 ml/min/1.73 sqM) Est GFR (CKD-EPI)NonAf 72 (>60 ml/min/1.73 sqM) Glucose 90 (74-99) mg/dL Plasma Lactic Acid Larry (0.7-2.0) mmol/L Calcium 9.8 (8.4-10.2) mg/dL Phosphorus 4.1 (2.5-4.5) mg/dL Magnesium 1.9 (1.6-2.3) mg/dL Total Bilirubin 0.2 (0.2-1.3) mg/dL AST 24 (14-36) U/L ALT 18 (4-34) U/L Alkaline Phosphatase 88 (38-126) U/L Lactate Dehydrogenase 403 (313-618) U/L Troponin I (0.000-0.034) ng/mL C-Reactive Protein <0.5 (<1.0) mg/dL NT-Pro-B Natriuret Pep pg/mL Total Protein 7.5 (6.3-8.2) g/dL Albumin 4.3 (3.5-5.0) g/dL TSH 3.890 (0.465-4.680) mIU/L Urine Color Urine Appearance (Clear) Urine pH (5.0-8.0) Ur Specific Arnold (1.001-1.035) Urine Protein (Negative) Urine Glucose (UA) (Negative) Urine Ketones (Negative) Urine Blood (Negative) Urine Nitrite (Negative) Urine Bilirubin (Negative) Urine Urobilinogen (<2.0) mg/dL Ur Leukocyte Esterase (Negative) Urine RBC (0-5) /hpf Urine WBC (0-5) /hpf Ur Squamous Epith Cells (0-4) /hpf Urine Mucus (None) /hpf Salicylates <1.0 mg/dL Urine Opiates Screen (NotDetected) Ur Oxycodone Screen (NotDetected) Urine Methadone Screen (NotDetected) Ur Propoxyphene Screen (NotDetected) Acetaminophen <10.0 ug/mL Ur Barbiturates Screen (NotDetected) U Tricyclic Antidepress (NotDetected) Ur Phencyclidine Scrn (NotDetected) Ur Amphetamines Screen (NotDetected) U Methamphetamines Scrn (NotDetected) U Benzodiazepines Scrn (NotDetected) Urine Cocaine Screen (NotDetected) U Marijuana (THC) Screen (NotDetected) 11/17/21 11/17/21 11/17/21 Range/Units 02:13 02:13 02:13 WBC (3.8-10.6) k/uL RBC (3.80-5.40) m/uL Hgb (11.4-16.0) gm/dL Hct (34.0-46.0) % MCV (80.0-100.0) fL MCH (25.0-35.0) pg MCHC (31.0-37.0) g/dL RDW (11.5-15.5) % Plt Count (150-450) k/uL MPV Neutrophils % % Lymphocytes % % Monocytes % % Eosinophils % % Basophils % % Neutrophils # (1.3-7.7) k/uL Lymphocytes # (1.0-4.8) k/uL Monocytes # (0-1.0) k/uL Eosinophils # (0-0.7) k/uL Basophils # (0-0.2) k/uL PT (9.0-12.0) sec INR (<1.2) APTT (22.0-30.0) sec Sodium (137-145) mmol/L Potassium (3.5-5.1) mmol/L Chloride (98-107) mmol/L Carbon Dioxide (22-30) mmol/L Anion Gap mmol/L BUN (7-17) mg/dL Creatinine (0.52-1.04) mg/dL Est GFR (CKD-EPI)AfAm (>60 ml/min/1.73 sqM) Est GFR (CKD-EPI)NonAf (>60 ml/min/1.73 sqM) Glucose (74-99) mg/dL Plasma Lactic Acid Larry 0.9 (0.7-2.0) mmol/L Calcium (8.4-10.2) mg/dL Phosphorus (2.5-4.5) mg/dL Magnesium (1.6-2.3) mg/dL Total Bilirubin (0.2-1.3) mg/dL AST (14-36) U/L ALT (4-34) U/L Alkaline Phosphatase (38-126) U/L Lactate Dehydrogenase (313-618) U/L Troponin I <0.012 (0.000-0.034) ng/mL C-Reactive Protein (<1.0) mg/dL NT-Pro-B Natriuret Pep 14 pg/mL Total Protein (6.3-8.2) g/dL Albumin (3.5-5.0) g/dL TSH (0.465-4.680) mIU/L Urine Color Urine Appearance (Clear) Urine pH (5.0-8.0) Ur Specific Arnold (1.001-1.035) Urine Protein (Negative) Urine Glucose (UA) (Negative) Urine Ketones (Negative) Urine Blood (Negative) Urine Nitrite (Negative) Urine Bilirubin (Negative) Urine Urobilinogen (<2.0) mg/dL Ur Leukocyte Esterase (Negative) Urine RBC (0-5) /hpf Urine WBC (0-5) /hpf Ur Squamous Epith Cells (0-4) /hpf Urine Mucus (None) /hpf Salicylates mg/dL Urine Opiates Screen (NotDetected) Ur Oxycodone Screen (NotDetected) Urine Methadone Screen (NotDetected) Ur Propoxyphene Screen (NotDetected) Acetaminophen ug/mL Ur Barbiturates Screen (NotDetected) U Tricyclic Antidepress (NotDetected) Ur Phencyclidine Scrn (NotDetected) Ur Amphetamines Screen (NotDetected) U Methamphetamines Scrn (NotDetected) U Benzodiazepines Scrn (NotDetected) Urine Cocaine Screen (NotDetected) U Marijuana (THC) Screen (NotDetected) 11/17/21 11/17/21 Range/Units 02:20 02:27 WBC (3.8-10.6) k/uL RBC (3.80-5.40) m/uL Hgb (11.4-16.0) gm/dL Hct (34.0-46.0) % MCV (80.0-100.0) fL MCH (25.0-35.0) pg MCHC (31.0-37.0) g/dL RDW (11.5-15.5) % Plt Count (150-450) k/uL MPV Neutrophils % % Lymphocytes % % Monocytes % % Eosinophils % % Basophils % % Neutrophils # (1.3-7.7) k/uL Lymphocytes # (1.0-4.8) k/uL Monocytes # (0-1.0) k/uL Eosinophils # (0-0.7) k/uL Basophils # (0-0.2) k/uL PT (9.0-12.0) sec INR (<1.2) APTT (22.0-30.0) sec Sodium (137-145) mmol/L Potassium (3.5-5.1) mmol/L Chloride (98-107) mmol/L Carbon Dioxide (22-30) mmol/L Anion Gap mmol/L BUN (7-17) mg/dL Creatinine (0.52-1.04) mg/dL Est GFR (CKD-EPI)AfAm (>60 ml/min/1.73 sqM) Est GFR (CKD-EPI)NonAf (>60 ml/min/1.73 sqM) Glucose (74-99) mg/dL Plasma Lactic Acid Larry (0.7-2.0) mmol/L Calcium (8.4-10.2) mg/dL Phosphorus (2.5-4.5) mg/dL Magnesium (1.6-2.3) mg/dL Total Bilirubin (0.2-1.3) mg/dL AST (14-36) U/L ALT (4-34) U/L Alkaline Phosphatase (38-126) U/L Lactate Dehydrogenase (313-618) U/L Troponin I (0.000-0.034) ng/mL C-Reactive Protein (<1.0) mg/dL NT-Pro-B Natriuret Pep pg/mL Total Protein (6.3-8.2) g/dL Albumin (3.5-5.0) g/dL TSH (0.465-4.680) mIU/L Urine Color Light Yellow Urine Appearance Clear (Clear) Urine pH 7.0 (5.0-8.0) Ur Specific Arnold 1.013 (1.001-1.035) Urine Protein Negative (Negative) Urine Glucose (UA) Negative (Negative) Urine Ketones Negative (Negative) Urine Blood Small H (Negative) Urine Nitrite Negative (Negative) Urine Bilirubin Negative (Negative) Urine Urobilinogen <2.0 (<2.0) mg/dL Ur Leukocyte Esterase Small H (Negative) Urine RBC 9 H (0-5) /hpf Urine WBC 6 H (0-5) /hpf Ur Squamous Epith Cells 1 (0-4) /hpf Urine Mucus Rare H (None) /hpf Salicylates mg/dL Urine Opiates Screen Not Detected (NotDetected) Ur Oxycodone Screen Not Detected (NotDetected) Urine Methadone Screen Not Detected (NotDetected) Ur Propoxyphene Screen Not Detected (NotDetected) Acetaminophen ug/mL Ur Barbiturates Screen Not Detected (NotDetected) U Tricyclic Antidepress Not Detected (NotDetected) Ur Phencyclidine Scrn Not Detected (NotDetected) Ur Amphetamines Screen Not Detected (NotDetected) U Methamphetamines Scrn Not Detected (NotDetected) U Benzodiazepines Scrn Not Detected (NotDetected) Urine Cocaine Screen Not Detected (NotDetected) U Marijuana (THC) Screen Detected H (NotDetected) - Radiology Data Radiology results: report reviewed (Chest x-rays negative for acute disease), image reviewed Disposition Clinical Impression: Weakness Disposition: HOME SELF-CARE Condition: Good Instructions (If sedation given, give patient instructions): Weakness (ED) Is patient prescribed a controlled substance at d/c from ED?: No Referrals: Aaron Talbot MD [Primary Care Provider] - 1-2 days
[2021-11-17 02:38] LABS: Basophils # (A) 0.1 k/uL (0-0.2); Basophils % (A) 1 %; Eosinophils # (A) 0.1 k/uL (0-0.7); Eosinophils % (A) 2 %; HCT 40.6 % (34.0-46.0); HGB 13.5 gm/dL (11.4-16.0); Lymphocytes # (A) 3.3 k/uL (1.0-4.8); Lymphocytes % (A) 40 %; MCH 30.7 pg (25.0-35.0); MCHC 33.1 g/dL (31.0-37.0); MCV 92.8 fL (80.0-100.0); Monocytes # (A) 0.3 k/uL (0-1.0); Monocytes % (A) 4 %; Neutrophils # (A) 4.1 k/uL (1.3-7.7); Neutrophils % (A) 51 %; Platelet Count 399 k/uL (150-450); RBC 4.38 m/uL (3.80-5.40); RDW 11.4 % (11.5-15.5); WBC 8.1 k/uL (3.8-10.6)
--- NOTE | 2021-11-17 02:48 | XR ---
EXAMINATION TYPE: XR chest 2V DATE OF EXAM: 11/17/2021 COMPARISON: NONE HISTORY: Weakness TECHNIQUE: 2 views FINDINGS: Heart and mediastinum are normal. Lungs are clear. Diaphragm is normal. Bony thorax is inta ct. IMPRESSION: Normal chest.
[2021-11-17 02:49] LABS: INR 0.9 (<1.2); Partial Thromboplastin Time 27.1 sec (22.0-30.0); Prothrombin Time 10.1 sec (9.0-12.0)
[2021-11-17 02:54] LABS: ALT 18 U/L (4-34); AST 24 U/L (14-36); Acetaminophen <10.0 ug/mL; African American GFR (CKD) 83 (>60 ml/min/1.73 sqM); Albumin 4.3 g/dL (3.5-5.0); Alkaline Phosphatase 88 U/L (38-126); Anion Gap 11 mmol/L; Blood Urea Nitrogen 18 mg/dL (7-17); C Reactive Protein <0.5 mg/dL (<1.0); Calcium 9.8 mg/dL (8.4-10.2); Carbon Dioxide 23 mmol/L (22-30); Chloride 105 mmol/L (98-107); Glucose 90 mg/dL (74-99); LDH 403 U/L (313-618); Magnesium 1.9 mg/dL (1.6-2.3); Non-African American GFR(CKD) 72 (>60 ml/min/1.73 sqM); Phosphorus 4.1 mg/dL (2.5-4.5); Potassium 3.9 mmol/L (3.5-5.1); Salicylate <1.0 mg/dL; Sodium 139 mmol/L (137-145); Total Bilirubin 0.2 mg/dL (0.2-1.3); Total Protein 7.5 g/dL (6.3-8.2)
[2021-11-17 02:58] LABS: Appearance,Urine Clear (Clear); Bilirubin,Urine Negative (Negative); Blood,Urine Small (Negative); Color,Urine Light Yellow; Glucose,Urine (UA) Negative (Negative); Ketones,Urine Negative (Negative); Leukocyte Esterase,Urine Small (Negative); Mucus,Urine Rare /hpf; Nitrite,Urine Negative (Negative); Protein,Urine Negative (Negative); RBC,Urine 9 /hpf (0-5); Specific Gravity,Urine 1.013 (1.001-1.035); Squamous Epithelial Cell,Urine 1 /hpf (0-4); Urobilinogen,Urine <2.0 mg/dL (<2.0); WBC,Urine 6 /hpf (0-5)
[2021-11-17 03:11] LABS: Amphetamine Screen,Urine Not Detected (NotDetected); Barbiturate Screen,Urine Not Detected (NotDetected); Benzodiazepines Screen,Urine Not Detected (NotDetected); Cocaine Screen,Urine Not Detected (NotDetected); Methadone Screen, Urine Not Detected (NotDetected); Opiate Screen,Urine Not Detected (NotDetected); Oxycodone Screen, Urine Not Detected (NotDetected); Phencyclidine Screen,Urine Not Detected (NotDetected); Tricyclic Antidepressant,Urine Not Detected (NotDetected); Urn Cannabinoid Scrn Detected (NotDetected)
[2021-11-17 05:06] VITALS: BP 121/75; PULSE 83; TEMP 98.2
== END 2021-11-17 05:01 | disposition home or self-care (01) ==
LOC: EC 01:18
DX: R53.1 Weakness (principal); G40.909 Epilepsy, unspecified, not intractable, without status epilepticus; F12.90 Cannabis use, unspecified, uncomplicated; Z87.891 Personal history of nicotine dependence; Z79.899 Other long term (current) drug therapy
CPT/HCPCS: 36415; 71046; 80053; 80143; 80175; 80179; 80306; 81001; 83605; 83615; 83735; 83880; 84100; 84443; 84484; 85025; 85610; 85730; 86140; 93005; 96360; 99285

== ENCOUNTER 2022-07-12 15:17 | Emergency (ER) | payer BC ==
[2022-07-12 15:37] VITALS: BP 129/87; PULSE 85; RESP 20; TEMP 98.3
[2022-07-12] MEDS ORDERED: KETOROLAC 15 MG/ML 1 ML VIAL IM STA (16:04)
--- NOTE | 2022-07-12 16:26 | ED ---
General Adult HPI - General Chief complaint: Neck Pain/Injury Stated complaint: neck pain Time Seen by Provider: 07/12/22 15:45 Source: patient, RN notes reviewed, old records reviewed Mode of arrival: ambulatory Limitations: no limitations - History of Present Illness Initial comments: This is a 27-year-old female complains of pain in the left trapezius muscle after having been at work swelling and reaching for something and felt a pull in her muscle. Patient denies any numbness or weakness. Patient denies any headache. Patient denies any blunt trauma to the area. Patient states it just hurts more when she turns her head to the left and/or when she has the trapezius muscle palpated - Related Data Home Medications Medication Instructions Recorded Confirmed Folic Acid 1 mg PO DAILY 05/06/14 10/31/21 Lgn-Yrfh-Tdezo Acid 1 cap PO DAILY 06/20/21 10/31/21 [-U Capsule (formulary)] lamoTRIgine [LaMICtal] 200 mg PO BID 06/20/21 10/31/21 Previous Rx's Medication Instructions Recorded Cyclobenzaprine [Flexeril] 5 mg PO TID #20 tab 07/12/22 Ibuprofen [Motrin] 600 mg PO Q6HR PRN #20 tab 07/12/22 Allergies Allergy/AdvReac Type Severity Reaction Status Date / Time No Known Allergies Allergy Verified 07/12/22 15:37 Review of Systems ROS Statement: Those systems with pertinent positive or pertinent negative responses have been documented in the HPI. ROS Other: All systems not noted in ROS Statement are negative. Past Medical History Past Medical History: Seizure Disorder Additional Past Medical History / Comment(s): Seizures since 6 years of age, last seizure in 2019. ADHD History of Any Multi-Drug Resistant Organisms: None Reported Past Surgical History: No Surgical Hx Reported Past Anesthesia/Blood Transfusion Reactions: No Reported Reaction Past Psychological History: ADD/ADHD, Anxiety, Depression Smoking Status: Former smoker Past Alcohol Use History: None Reported Past Drug Use History: Marijuana - Past Family History Mother Family Medical History: No Reported History General Exam - General Exam Comments Initial Comments: GENERAL Patient is well-developed and well-nourished. Patient is in mild distress. EYES Patient's pupils are equal and round. Extraocular motion is intact SKIN Unremarkable NEURO The patient is alert and oriented 3 PYSCH Patient has normal interpersonal interactions. MUSCULOSKELETAL The trapezius muscle on the left is tender to palpation it also hurts her when I turn her head. Limitations: no limitations Course Vital Signs 07/12/22 15:35 Temperature 98.3 F Pulse Rate 85 Respiratory 20 Rate Blood Pressure 129/87 O2 Sat by Pulse 100 Oximetry Medical Decision Making - Medical Decision Making Patient received Toradol shot emergency department. Disposition Clinical Impression: Strain of neck muscle Disposition: HOME SELF-CARE Instructions (If sedation given, give patient instructions): Cervical Sprain (ED) Prescriptions: Cyclobenzaprine [Flexeril] 5 mg PO TID #20 tab Ibuprofen [Motrin] 600 mg PO Q6HR PRN #20 tab PRN Reason: For pain Is patient prescribed a controlled substance at d/c from ED?: No Referrals: Aaron Talbot MD [Primary Care Provider] - 1-2 days Time of Disposition: 16:25
== END 2022-07-12 17:35 | disposition home or self-care (01) ==
LOC: EC 15:17
DX: S16.1XXA Strain of muscle, fascia and tendon at neck level, initial encounter (principal); Z86.69 Personal history of other diseases of the nervous system and sense organs; Z87.891 Personal history of nicotine dependence; X58.XXXA Exposure to other specified factors, initial encounter; Y99.0 Civilian activity done for income or pay
CPT/HCPCS: 99283; 96372; J1885